=== PATIENT | female | born 1960 | race Caucasian/White ===

== ENCOUNTER 2016-11-09 08:59 | Emergency (ER) | payer BC, OTHER ==
[~2016-11-09] VITALS: Ht 165.1 cm; Wt 92.1 kg
[2016-11-09] MEDS ORDERED: SODIUM CHLORIDE 0.9% 1,000 ML IV ONE (10:36)
[2016-11-09] MEDS ORDERED: NALBUPHINE HCL 10 MG/1ml INJECTION IV ONE (10:45)
[2016-11-09] MEDS ORDERED: METOCLOPRAMIDE HCL 5MG/ml INJ 2ml VIAL IV ONE (10:45)
[2016-11-09 11:13] LABS: Basophils # (auto) 0 uL; Basophils % (auto) 0.7 % (0.0-2.0); Eosinophils # (auto) 0.2 uL; Eosinophils % (auto) 3.5 % (0.0-7.0); Hematocrit 38.8 % (36.0-46.0); Hemoglobin 12.8 g/dL (12.2-16.2); Lymphocytes # (auto) 1.8 uL; Lymphocytes % (auto) 31.9 % (10.0-50.0); Mean Corpuscular Hemoglobin 29.6 pg (28.0-32.0); Mean Corpuscular Hgb Conc. 32.9 g/dL (32.0-36.0); Mean Corpuscular Volume 89.8 fL (80.0-100.0); Mean Platelet Volume 8.1 fL (7.4-10.4); Monocytes # (auto) 0.5 uL; Monocytes % (auto) 9.1 % (0.0-12.0); Neutrophils # (auto) 3.1 uL; Neutrophils % (auto) 54.8 % (37.0-80.0); Platelet Count (auto) 326 10^3/uL (140-450); Red Cell Distribution Width 13.4 % (11.6-16.0); White Blood Cell 5.6 10^3/uL (4.4-10.8)
[2016-11-09 11:14] LABS: BUN/Creatinine Ratio 25.6; Calcium 8.8 mg/dL (8.5-10.1); Magnesium 2.3 mg/dL (1.6-2.6); Potassium 3.9 mmol/L (3.5-5.1)
[2016-11-09 11:59] LABS: Urine Bilirubin Negative (Negative); Urine Blood Negative /uL (Negative); Urine Color Yellow (Yellow); Urine Glucose Normal (Normal); Urine Ketone Negative (Negative); Urine Nitrite Negative (Negative); Urine RBC 18 /hpf (0 - 4); Urine Squamous Epithelial Cell MOD /hpf (<5); Urine Urobilinogen Normal (Negative); Urine pH 5.5 (5.0-8.0)
[2016-11-09 12:54] VITALS: BP 113/70
== END 2016-11-09 14:58 | disposition home or self-care (01) ==
LOC: ER 09:00
DX: M62.838 Other muscle spasm (principal); N39.0 Urinary tract infection, site not specified; I10 Essential (primary) hypertension; M19.90 Unspecified osteoarthritis, unspecified site
CPT/HCPCS: 36415; 72040; 80048; 81001; 83735; 85025; 96361; 96374; 96375; 99285; J2300; J2765; J7030

== ENCOUNTER 2017-01-03 14:02 | Emergency (ER) | payer BC, OTHER ==
[~2017-01-03] VITALS: Ht 165.1 cm; Wt 92.1 kg
[2017-01-03] MEDS ORDERED: methylPREDNISolone SOD SUCC 125 MG/2 ML VL IM ONE (15:30)
[2017-01-03] MEDS ORDERED: diphenhdrAMINE HCL 50 MG/1 ML VL IM ONE (15:30)
[2017-01-03 16:59] VITALS: BP 133/81
== END 2017-01-03 16:54 | disposition home or self-care (01) ==
LOC: ER 14:02
DX: L50.9 Urticaria, unspecified (principal); I10 Essential (primary) hypertension; Z90.49 Acquired absence of other specified parts of digestive tract
CPT/HCPCS: 96372; 99284; J1200; J2930

== ENCOUNTER → 2017-11-07 | Outpatient (CLI) | payer BC ==
[2017-11-07 15:49] LABS: Urine Bacteria NONE SEEN /hpf (None Seen); Urine Blood Negative /uL (Negative); Urine Specific Gravity 1.007 (1.001-1.035); Urine WBC 2 /hpf (0 - 5)
== END | disposition home or self-care (01) ==
LOC: LAB 15:26
PROVIDERS: ATTEND Registered Nurse General Practice
DX: N39.0 Urinary tract infection, site not specified (principal); I10 Essential (primary) hypertension
CPT/HCPCS: 81001; 87086

== ENCOUNTER → 2017-12-20 | Outpatient (CLI) | payer BC ==
[2017-12-20 09:35] LABS: Basophils # (auto) 0.1 uL; Basophils % (auto) 1.5 % (0.0-2.0); Eosinophils # (auto) 0.3 uL; Eosinophils % (auto) 5.8 % (0.0-7.0); Hemoglobin 13.5 g/dL (12.2-16.2); Lymphocytes # (auto) 1.7 uL; Lymphocytes % (auto) 30.6 % (10.0-50.0); Mean Corpuscular Hemoglobin 30.6 pg (28.0-32.0); Mean Corpuscular Hgb Conc. 32.9 g/dL (32.0-36.0); Monocytes # (auto) 0.4 uL; Monocytes % (auto) 8.1 % (0.0-12.0); Neutrophils # (auto) 2.9 uL; Nucleated Red Blood Cells % 0.1 %; Platelet Count (auto) 257 10^3/uL (140-450); Red Blood Cells 4.41 10^6/uL (4.0-5.20); Red Cell Distribution Width 13.3 % (11.8-14.3); White Blood Cell 5.4 10^3/uL (4.4-10.8)
[2017-12-20 10:03] LABS: Albumin 3.7 g/dL (3.4-5.0); BUN/Creatinine Ratio 21.1; Bilirubin, Total 0.4 mg/dL (0.2-1.0); Calcium 9.1 mg/dL (8.5-10.1); Potassium 4.4 mmol/L (3.5-5.1)
== END | disposition home or self-care (01) ==
LOC: LAB 09:05
PROVIDERS: ATTEND Physician Assistant
DX: Z00.01 Encounter for general adult medical examination with abnormal findings (principal); I10 Essential (primary) hypertension; M19.90 Unspecified osteoarthritis, unspecified site; M25.561 Pain in right knee
CPT/HCPCS: 36415; 80053; 80061; 85025

== ENCOUNTER 2018-02-09 22:00 | Emergency (ER) | payer BC ==
[~2018-02-09] VITALS: Ht 165.1 cm; Wt 95.3 kg
[2018-02-09 22:52] VITALS: BP 151/89
[2018-02-09] MEDS ORDERED: TRIAMCINOLONE 40MG/ML 1ML VIAL IM ONE (23:00)
== END 2018-02-09 23:27 | disposition home or self-care (01) ==
LOC: ER 22:00
DX: M25.561 Pain in right knee (principal); I10 Essential (primary) hypertension; Z90.49 Acquired absence of other specified parts of digestive tract
CPT/HCPCS: 96372; 99283; J3301

== ENCOUNTER → 2018-03-12 | Outpatient (CLI) | payer BC | END | disposition home or self-care (01) | LOC: LAB 10:48 | PROVIDERS: ATTEND Physician Assistant | DX: R53.83 Other fatigue (principal); E55.9 Vitamin D deficiency, unspecified | CPT/HCPCS: 36415; 82306; 84443 ==

== ENCOUNTER 2018-04-06 14:00 | Emergency (ER) | payer BC ==
[~2018-04-06] VITALS: Ht 165.1 cm; Wt 100.7 kg
[2018-04-06 15:47] VITALS: BP 157/84
== END 2018-04-06 15:50 | disposition home or self-care (01) ==
LOC: ER 14:00
DX: S76.912A Strain of unspecified muscles, fascia and tendons at thigh level, left thigh, initial encounter (principal); I10 Essential (primary) hypertension; K21.9 Gastro-esophageal reflux disease without esophagitis; Z90.49 Acquired absence of other specified parts of digestive tract; X58.XXXA Exposure to other specified factors, initial encounter; Y93.89 Activity, other specified; Y99.8 Other external cause status; Y92.89 Other specified places as the place of occurrence of the external cause
CPT/HCPCS: 93971